=== PATIENT | female | born 1970 | race Caucasian/White ===

== ENCOUNTER 2022-02-05 10:48 | Day surgery (SDC) | payer BC ==
[~2022-02-05 10:48] MED LIST: Lactated Ringers 1,000 ML IV SCH; Lidocaine 1%/Sod Bicarbonate in NS 8.4% 1 ML Syringe IDERM PRN; Sodium Chloride 0.9% 10 ML Syringe FLUSH PRN; Sodium Chloride 0.9% 10 ML Syringe FLUSH SCH
[2022-02-05] MEDS ORDERED: fentaNYL 100 MCG/2 ML SDV ONE (11:10)
[2022-02-05] MEDS ORDERED: Propofol 200 MG/20 ML SDV ONE ×3 (11:10→12:19)
[2022-02-05] MEDS ORDERED: Lactated Ringers 1,000 ML ONE (12:03)
[2022-02-05] MEDS ORDERED: Ondansetron 4 MG/2 ML SDV IVPUSH PRN (12:04)
[2022-02-05] MEDS ORDERED: Furosemide 20 MG/2 ML VIAL ONE (12:21)
== END 2022-02-05 13:07 | disposition home or self-care (01) ==
LOC: JD.SDS 10:48
PROVIDERS: ATTEND Surgery
DX: Z12.11 Encounter for screening for malignant neoplasm of colon (principal); K57.30 Diverticulosis of large intestine without perforation or abscess without bleeding; K64.4 Residual hemorrhoidal skin tags; F41.9 Anxiety disorder, unspecified; Z91.040 Latex allergy status; Z88.8 Allergy status to other drugs, medicaments and biological substances; Z79.899 Other long term (current) drug therapy; Z98.890 Other specified postprocedural states
CPT/HCPCS: 45378; J2704; J3010; J7120; J1940